=== PATIENT | female | born 1955 | race Asian ===

== ENCOUNTER 2019-06-05 09:25 | Outpatient (CLI) | payer OTHER | END 2019-06-05 18:59 | disposition home or self-care (01) | LOC: RAD 09:25 | DX: Z13.820 Encounter for screening for osteoporosis (principal); N95.8 Other specified menopausal and perimenopausal disorders ==

== ENCOUNTER 2022-05-24 08:43 | Outpatient (CLI) | payer OTHER | END 2022-05-24 18:56 | disposition home or self-care (01) | LOC: RAD 08:43 | PROVIDERS: ATTEND Internal Medicine | DX: Z12.31 Encounter for screening mammogram for malignant neoplasm of breast (principal); Z13.820 Encounter for screening for osteoporosis; N95.8 Other specified menopausal and perimenopausal disorders ==